=== PATIENT | male | born 1955 | race Two or more races ===

== ENCOUNTER 2018-02-16 13:10 | Outpatient (CLI) | payer OTHER | END 2018-02-16 13:22 | disposition home or self-care (01) | LOC: SONOGRAMA 13:10 → MAMO-SONO 13:15 → SONOGRAMA 13:22 | DX: M25.511 Pain in right shoulder (principal); M25.512 Pain in left shoulder ==

== ENCOUNTER 2018-03-31 18:01 | Emergency (ER) | payer OTHER ==
[~2018-03-31] VITALS: Ht 185.4 cm; Wt 108.4 kg
[2018-03-31] MEDS ORDERED: AMOX1TAB5 (18:11)
== END 2018-03-31 19:55 ==
LOC: ER 18:01
DX: S81.812A Laceration without foreign body, left lower leg, initial encounter (principal); L08.9 Local infection of the skin and subcutaneous tissue, unspecified; W45.8XXA Other foreign body or object entering through skin, initial encounter; Y93.89 Activity, other specified; Y92.89 Other specified places as the place of occurrence of the external cause; Y99.8 Other external cause status